=== PATIENT | male | born 1955 | race Caucasian/White ===

== ENCOUNTER → 2019-08-09 | Outpatient (CLI) | payer MEDICARE | LOC: NM 07:38 | PROVIDERS: ATTEND Nuclear Medicine Nuclear Cardiology | DX: I20.9 Angina pectoris, unspecified (principal) ==

== ENCOUNTER → 2019-11-08 | Outpatient (CLI) | payer MEDICARE | LOC: RESP 12:14 | PROVIDERS: ATTEND Physician Assistant | DX: R00.2 Palpitations (principal) ==